=== PATIENT | male | born 1990 | race African-American/Black ===

== ENCOUNTER 2017-05-08 09:56 | Emergency (ER) | payer OTHER ==
[2017-05-08] MEDS: cefTRIAXone SOD 250 MG VIAL (J0696) IM (10:44)
[2017-05-08] MEDS: AZITHROMYCIN 250 MG TAB PO (10:44)
[2017-05-08 11:27] LABS: HEPATITIS B SURFACE ANTIBODY POSITIVE (POSITIVE)
[2017-05-08 11:37] LABS: HEPATITIS B SURFACE ANTIGEN NEGATIVE (NEGATIVE)
[2017-05-08 12:05] LABS: HIV 1&2 SCREEN CENTAUR NEGATIVE (NEGATIVE)
[2017-05-08 12:05] LABS: HEPATITIS C VIRUS ABY INDEX 0.1 INDEX (<0.8)
[2017-05-08 12:23] LABS: CHLAMYDIA DNA AMPLIFICATION NEGATIVE (NEGATIVE); GC DNA AMPLIFICATION NEGATIVE (NEGATIVE)
== END 2017-05-08 11:05 | disposition home or self-care (01) ==
LOC: M ED 09:56
DX: Z20.2 Contact with and (suspected) exposure to infections with a predominantly sexual mode of transmission (principal); F41.9 Anxiety disorder, unspecified; Z79.899 Other long term (current) drug therapy; F17.210 Nicotine dependence, cigarettes, uncomplicated
CPT/HCPCS: J0696